=== PATIENT | male | born 1980 | race Two or more races ===

== ENCOUNTER 2019-04-09 15:28 | Emergency (ER) | payer MEDICAID ==
[~2019-04-09] VITALS: Ht 167.6 cm; Wt 85.0 kg
[2019-04-09] MEDS ORDERED: PIPERACILLIN/TAZOBACTAM 3.375GM/50ML PREMIX IV ONE (16:15)
[2019-04-09 16:49] LABS: BASOPHILS % 0.5 % (0.0-2.0); EOSINOPHILS % 0.8 % (0.0-5.0); HEMATOCRIT. 40.6 % (42.0-52.0); HEMOGLOBIN. 13.9 g/dL (14.0-18.0); LYMPHOCYTES % 20.8 % (20.0-50.0); MEAN CORPUSCULAR HEMOGLOBIN 29.5 pg (28.0-32.0); MEAN CORPUSCULAR VOLUME 86.3 fL (80.0-94.0); MEAN PLATELET VOLUME 7.2 fl (7.4-10.4); MONOCYTES % 6.7 % (2.0-8.0); NEUTROPHILS % 71.2 % (40.0-76.0); PLATELET 227 x1000/uL (130-400); RED BLOOD CELL COUNT 4.71 mill/uL (4.7-6.1)
[2019-04-09] MEDS: MORPHINE SULFATE 4 MG/ML CPJ (NOT FOR IM USE) IV STA (16:50)
[2019-04-09] MEDS: VANCOMYCIN 1 G PREMIX 200 ML IV SCH (16:51)
[2019-04-09] MEDS: SODIUM CHLORIDE 0.9% 1,000 ML IV ONE (16:51)
[2019-04-09] MEDS: KETOROLAC 30MG/ML VIAL IV STA (16:51)
[2019-04-09 16:53] LABS: CHLORIDE 105 mEq/L (98-107)
[2019-04-09 16:54] LABS: PROTHROMBIN TIME 10.7 sec (9.6-11.0)
[2019-04-09] MEDS: PIPERACILLIN/TAZ 3.375G PREMIX 50 ML IV NR (17:58)
[2019-04-09 19:39] LABS: CLARITY URINE CLEAR (CLEAR); COLOR URINE YELLOW (YELLOW); KETONES URINE NEGATIVE (NEGATIVE); LEUKOCYTE ESTERASE URINE NEGATIVE (NEGATIVE); NITRITE URINE NEGATIVE (NEGATIVE); OCCULT BLOOD URINE NEGATIVE (NEGATIVE); PH URINE 6.5 (4.5-8.0); PROTEIN URINE NEGATIVE (NEGATIVE); SPECIFIC GRAVITY URINE 1.017 (1.005-1.030); UROBILINOGEN URINE 0.2 E.U./dL (0.2-1.0)
[2019-04-09 21:13] VITALS: BP 112/62
== END 2019-04-09 21:39 | disposition short-term general hospital (02) ==
LOC: ER 15:28 → EDBEDREQ 16:27 → EDBEDREQTM 16:27 → CANBEDREQ 19:08 → ER 21:39
DX: N48.29 Other inflammatory disorders of penis (principal); N48.89 Other specified disorders of penis; F17.200 Nicotine dependence, unspecified, uncomplicated; F12.10 Cannabis abuse, uncomplicated
CPT/HCPCS: 36415; 80053; 81003; 85025; 85610; 96365; 96367; 96375; 99285; J1885; J2270; J2543; J3370; J7030; J7040; Z7610